=== PATIENT | male | born 1985 | race Caucasian/White ===

== ENCOUNTER 2017-09-03 11:29 | Emergency (ER) | payer BC ==
[~2017-09-03] VITALS: Ht 167.6 cm; Wt 83.9 kg
--- NOTE | 2017-09-03 13:30 | NUR ---
Patient discharged to home in stable conditon. Written and verbal after care instructions given. Patient verbalizes understanding of instructions.PT ACCOMPANIED BY FAMILY MEMBERS
[2017-09-03 13:51] VITALS: BP 121/85
== END 2017-09-03 13:50 | disposition home or self-care (01) ==
LOC: ER 11:29
DX: S41.112A Laceration without foreign body of left upper arm, initial encounter (principal); F17.200 Nicotine dependence, unspecified, uncomplicated; W20.8XXA Other cause of strike by thrown, projected or falling object, initial encounter; Y93.89 Activity, other specified; Y92.9 Unspecified place or not applicable; Y99.9 Unspecified external cause status
CPT/HCPCS: 73080; A4217; A4663

== ENCOUNTER 2019-08-10 22:54 | Emergency (ER) | payer BC ==
[~2019-08-10] VITALS: Ht 170.2 cm; Wt 90.7 kg
[2019-08-10] MEDS ORDERED: PANTOPRAZOLE SODIUM 40 MG VIAL IV ONE (23:15)
[2019-08-10] MEDS ORDERED: HYDROMORPHONE 1 MG/1 ML DISP.SYRIN IV ONE (23:15)
[2019-08-10] MEDS ORDERED: HYDROMORPHONE 1 MG/1 ML DISP.SYRIN ONE (23:19)
[2019-08-10] MEDS ORDERED: PANTOPRAZOLE SODIUM 40 MG VIAL ONE (23:20)
[2019-08-10 23:27] LABS: BASOPHILS # (AUTO) 0.1 K/uL (0.0-8.0); BASOPHILS % (AUTO) 0.9 % (0.0-2.0); EOSINOPHILS # (AUTO) 0.2 K/uL (0.0-0.7); EOSINOPHILS % (AUTO) 1.4 % (0.0-7.0); HEMATOCRIT 44.7 % (36.7-47.1); HEMOGLOBIN 15.7 g/dL (12.5-16.3); LYMPHOCYTES # (AUTO) 4.1 K/uL (20.0-40.0); LYMPHOCYTES % (AUTO) 36.5 % (20.5-51.5); MEAN CORPUSCULAR HGB CONC 35 g/dL (32.5-36.3); MEAN CORPUSCULAR VOLUME 85.6 fL (73.0-96.2); MONOCYTES # (AUTO) 0.8 K/uL (2.0-10.0); MONOCYTES % (AUTO) 7.1 % (0.0-11.0); NEUTROPHILS # (AUTO) 6.1 K/uL (1.8-8.9); NEUTROPHILS % (AUTO) 54.1 % (38.5-71.5); PLATELET COUNT (AUTO) 424 K/uL (152-348); RED BLOOD CELL COUNT(AUTO) 5.22 MIL/uL (4.06-5.63); WHITE BLOOD COUNT (AUTO) 11.3 K/uL (3.6-10.2)
[2019-08-10 23:30] LABS: POTASSIUM 3.5 mmol/L (3.5-5.1)
[2019-08-10 23:35] LABS: BILIRUBIN,DIRECT 0.1 mg/dL (0.0-0.2); BILIRUBIN,TOTAL 0.4 mg/dL (0.2-1.0); TOTAL PROTEIN, SERUM 7.2 g/dL (6.4-8.2)
--- NOTE | 2019-08-10 23:44 | NUR ---
Pt provided urine sample, sent to lab.
[2019-08-10 23:56] LABS: *BILIRUBIN,URIN NEGATIVE (NEGATIVE); *BLOOD, URINE NEGATIVE (NEGATIVE); *CLARITY,URINE CLEAR (CLEAR); *COLOR,URINE YELLOW (YELLOW); *KETONES,URINE NEGATIVE (NEGATIVE); *UROBILINOGEN,URINE 0.2 E.U./dl (NORMAL); LEUKOCYTE ESTERASE ,URINE NEGATIVE (NEGATIVE); NITRITE, URINE NEGATIVE (NEGATIVE); UGLUCOSE NEGATIVE (NEGATIVE)
[2019-08-11] MEDS ORDERED: HYDROMORPHONE 1 MG/1 ML DISP.SYRIN IV ONE
[2019-08-11] MEDS ORDERED: HYDROMORPHONE 2 MG/1 ML DISP.SYRIN ONE (00:01)
--- NOTE | 2019-08-11 00:52 | NUR ---
PT ABLE TO TOLERATE 2CRACKERS AND 1 CUP OF WATER DENIES PAIN DENIES EMESIS/NVD NAD, SIDERAILSX2 UP, BED AT LOWEST POSITION
--- NOTE | 2019-08-11 01:20 | NUR ---
Patient discharged to home in stable conditon. Written and verbal after care instructions given. Patient verbalizes understanding of instructions. AMBULATORY W/ STABLE GAIT DENIES PAIN ALL BELONGINGSW/PT Addendum: 08/11/19 at 0153 by MARICASTIL IV SALINE ON R AC DISCONTINUED COVERED WITH GAUZE AND TAPE
[2019-08-11 02:00] VITALS: BP 130/82
== END 2019-08-11 01:20 | disposition home or self-care (01) ==
LOC: ER 22:55
DX: K80.50 Calculus of bile duct without cholangitis or cholecystitis without obstruction (principal); E78.00 Pure hypercholesterolemia, unspecified; F17.200 Nicotine dependence, unspecified, uncomplicated
CPT/HCPCS: 36415; 76705; 80048; 80076; 81001; 83690; 85025; 96374; 96375; 96376; 99284; C9113; J1170 ×2; A4663

== ENCOUNTER 2020-07-24 22:23 | Emergency (ER) | payer BC | END 2020-07-24 22:40 | disposition left against medical advice (07) | LOC: ER 22:23 | DX: Z75.3 Unavailability and inaccessibility of health-care facilities (principal) ==